=== PATIENT | female | born 1975 | race Caucasian/White ===

== ENCOUNTER 2017-11-04 07:03 | Inpatient (IN) | payer MEDICAID ==
[2017-11-04] VITALS (20 sets, daily range): BP systolic 133–176; BP diastolic 77–96; PULSE 42–56; RESP 18–24; TEMP 98.6–99.7; O2SAT 98–100
[~2017-11-04] VITALS: Ht 162.6 cm; Wt 69.5 kg
[~2017-11-04 07:03] MED LIST: ADVAI250I PO; CLIN150 PO; DIPH2%T PO; GABA800T PO; HYDR-3533 PO; IBUP600 PO; IBUP800 PO; LEVE500 PO; LEXA20TA PO; PRED-1 PO; SYMB160A INH; SYNT75TA PO; TRAZ50TA4 PO; XANA0.5T PO
[2017-11-04] MEDS ORDERED: SODIUM CHLOR 0.9% 1000 ML INJ 1,000 ML IV SCH (07:11)
[2017-11-04] MEDS ORDERED: SODIUM CHLORIDE 0.9% FLUSH 10 ML FLUSH IV FLUSH PRN (07:15)
[2017-11-04] MEDS ORDERED: LEVO100T5 PO (07:24)
[2017-11-04] MEDS ORDERED: ESCI20TA PO (07:24)
[2017-11-04] MEDS ORDERED: PRED10 PO (07:24)
[2017-11-04] MEDS ORDERED: ALPR0.5T3 PO (07:24)
[2017-11-04] MEDS ORDERED: GABA800T PO (07:24)
[2017-11-04] MEDS ORDERED: TRAZ100T10 PO (07:24)
[2017-11-04] MEDS ORDERED: HYDR-3583 PO (07:24)
[2017-11-04] MEDS ORDERED: CELE1CAP8 PO (07:24)
[2017-11-04] MEDS ORDERED: SODIUM CHLOR 0.9% 1000 ML INJ 1,000 ML IV ONE (07:30)
[2017-11-04 07:31] LABS: AUTOMATED NEUTROPHIL # 6.3 TH/MM3 (1.8-7.7); BASOPHIL % 0.4 % (0.0-2.0); EOSINOPHIL # 0.3 TH/MM3 (0-0.4); EOSINOPHIL % 3.3 % (0.0-4.0); HEMATOCRIT 45.9 % (35.0-46.0); HEMO FLAGS DIFF FINAL; LYMPH % 19.2 % (9.0-44.0); LYMPHOCYTE # 1.7 TH/MM3 (1.0-4.8); MEAN CELL VOLUME 94.2 FL (80.0-100.0); MEAN CORPUSCULAR HEMOGLOBIN 31.4 PG (27.0-34.0); MEAN CORPUSCULAR HGB CONC 33.3 % (32.0-36.0); MONO % 7.6 % (0.0-8.0); NEUT % 69.5 % (16.0-70.0); PLATELET COUNT 170 TH/MM3 (150-450); RED BLOOD COUNT 4.87 MIL/MM3 (4.00-5.30); RED CELL DISTRIBUTION WIDTH 13.6 % (11.6-17.2)
[2017-11-04 07:33] LABS: BLOOD, URINE NEG (NEG); GLUCOSE,URINE NEG (NEG); KETONE, URINE NEG (NEG); NITRITE,URINE NEG (NEG); PH, URINE 5.5 (5.0-8.5); SQUAMOUS EPITHELIAL CELL URINE <1 /hpf (0-5); URINE COLOR LIGHT-YELLOW (YELLW/STRAW)
[2017-11-04 07:34] LABS: COMMENT (UR) CATH-CULT NOT IND; CULTURE IF INDICATED CATH CULTURE NOT IND
[2017-11-04 07:56] LABS: ALT (GPT) 24 U/L (10-53); ANION GAP 6 MEQ/L (5-15); AST (GOT) 19 U/L (15-37); BICARBONATE 25.3 MEQ/L (21.0-32.0); BLOOD UREA NITROGEN 14 MG/DL (7-18); CHLORIDE 111 MEQ/L (98-107); GLOMERULAR FILTRATION RATE 73 ML/MIN (>89); POTASSIUM 4.1 MEQ/L (3.5-5.1); SODIUM (NA) 142 MEQ/L (136-145)
--- NOTE | 2017-11-04 07:56 | RADRPT ---
EXAM DATE/TIME: 11/04/2017 07:41 [facility] COMPARISON: CT BRAIN W/O CONTRAST, August 19, 2016, 19:14. INDICATIONS : Found unresponsive RADIATION DOSE: 33.98 CTDIvol (mGy) MEDICAL HISTORY : Non-responsive. SURGICAL HISTORY : Non-responsive. ENCOUNTER: Initial ACUITY: 1 day PAIN SCALE: Non-responsive LOCATION: cranial TECHNIQUE: Multiple contiguous axial images were obtained of the head. Using automated exposure control and adj ustment of the mA and/or kV according to patient size, radiation dose was kept as low as reasonably a chievable to obtain optimal diagnostic quality images. DICOM format image data is available electro nically for review and comparison. FINDINGS: CEREBRUM: The ventricles are normal for age. No evidence of midline shift, mass lesion, hemorrhage or acute in farction. No extra-axial fluid collections are seen. POSTERIOR FOSSA: The cerebellum and brainstem are intact. The 4th ventricle is midline. The cerebellopontine angle i s unremarkable. EXTRACRANIAL: The visualized portion of the orbits is intact. SKULL: The calvaria is intact. No evidence of skull fracture. CONCLUSION: 1. No acute intracranial abnormality. David Osorio MD on November 04, 2017 at 7:52 Board Certified Radiologist. This report was verified electronically.
[2017-11-04 08:00] LABS: ALCOHOL LESS THAN 3 MG/DL (0-5)
[2017-11-04 08:06] LABS: ALKALINE PHOSPHATASE 104 U/L (45-117); CREATINE KINASE 220 U/L (26-192); TOTAL BILIRUBIN ADULT 0.2 MG/DL (0.2-1.0)
--- NOTE | 2017-11-04 08:12 | RADRPT ---
EXAM DATE/TIME: 11/04/2017 07:54 [facility] COMPARISON: No previous studies available for comparison. INDICATIONS : Evaluate ET tube placement. MEDICAL HISTORY : Unobtainable SURGICAL HISTORY : Unobtainable ENCOUNTER: Initial ACUITY: 1 day PAIN SCORE: Non-responsive. LOCATION: Bilateral chest FINDINGS: There is an ETT approximately 1.2 cm above the isabela. Retrocardiac opacity. Cardiomediastinal contou rs are within normal limits. Bony thorax is intact. CONCLUSION: 1. ETT 1.2 cm above the isabela. 2. Retrocardiac opacity consistent with airspace disease in the left lung base. David Osorio MD on November 04, 2017 at 8:08 Board Certified Radiologist. This report was verified electronically.
[2017-11-04 08:19] LABS: CKMB 4.3 NG/ML (0.5-3.6)
[2017-11-04 08:27] LABS: ACETAMINOPHEN LESS THAN 2.0 MCG/ML (10.0-30.0)
--- NOTE | 2017-11-04 08:27 | PD ---
HPI Chief Complaint: Altered Mental Status Time Seen by Provider: 07:11 Travel History International Travel<30 days: No Contact w/Intl Traveler<30days: No Traveled to known affect area: No History of Present Illness HPI 42-year-old female came to the emergency room with history of being found unresponsive at home by her son. He found both his mother and father unresponsive and called 911. When paramedics arrived the patient was a GCS of 3. She was given Narcan at the scene total of 1.2 mg with no change of her mental status. Decision was made to intubate her once she started doing gagging motions. Patient was in no condition obviously to give any meaningful history. She was brought in intubated. There was no family member is assisting to give any further history. Blood sugar was 98 as per the paramedics and vital signs remained relatively stable. Patient had received Ativan and Etomidate for the intubation. As per the paramedics patient was last seen normal by the son was at 10 PM last night. Her was found unresponsive in the bathroom twitching. They found a pipe in the surrounding. Upon arrival vital signs were stable. [facility] Past Medical History Narrative Medical List of her past medical, surgical, social and family history is reviewed from the nursing note. Arthritis: Yes Autoimmune Disease: Yes (LUPUS) Anxiety: Yes Depression: Yes Cancer: No Cardiovascular Problems: No Chemotherapy: No Diminished Hearing: No Endocrine: No Gastrointestinal Disorders: Yes Gout: Yes Genitourinary: No Headaches: Yes Immune Disorder: No Implanted Vascular Access Dvce: No Musculoskeletal: Yes Neurologic: Yes (seizure disorder) Psychiatric: Yes Reproductive: No Respiratory: No Immunizations Current: Yes Migraines: Yes Radiation Therapy: No Seizures: Yes Thyroid Disease: Yes PNEUMOCCOCAL Vaccine (Year): 2010 ?: Not : 3 Para: 2 Miscarriage: 1 Ovarian Cysts: Yes Tubal Ligation: Yes Past Surgical History Gynecologic Surgery: Yes (LT OOPHORECTOMY) Other Surgery: Yes Social History Alcohol Use: No Tobacco Use: Yes (1 PPD) Substance Use: No Allergies-Medications (Allergen,Severity, Reaction): Coded Allergies: almond (Verified Allergy, Severe, Anaphylaxis, 11/08/17) lorazepam (Verified Allergy, Unknown, 11/08/17) Comments List of her allergies reviewed from the nursing note. Reported Meds & Prescriptions Reported Meds & Active Scripts Active Reported Hydrocodone-Acetaminophen 10-325 mg Tab 1 Tab PO Q4H PRN Celecoxib 200 Mg Cap 200 Mg PO BID Gabapentin 800 Mg Tab 800 Mg PO QID Trazodone (Trazodone HCl) 100 Mg Tablet 100 Mg PO HS Levothyroxine (Levothyroxine Sodium) 100 Mcg Tab 100 Mcg PO DAILY Escitalopram (Escitalopram Oxalate) 20 Mg Tab 20 Mg PO DAILY Alprazolam 0.5 Mg Tab 0.5 Mg PO Q8H PRN Narrative Medication List of her home medications reviewed from the nursing note. Review of Systems ROS Limitations: Intubated, Unresponsive Except as stated in HPI: all other systems reviewed are Neg Physical Exam Narrative GENERAL: Unresponsive, intubated, disheveled SKIN: Focused skin assessment warm/dry. HEAD: Atraumatic. Normocephalic. EYES: Pupils equal and round. No scleral icterus. No injection or drainage. ENT: No nasal bleeding or discharge. Mucous membranes pink and moist. NECK: Trachea midline. No JVD. CARDIOVASCULAR: Regular rate and rhythm. No murmur appreciated. RESPIRATORY: No accessory muscle use. Clear to auscultation. Breath sounds equal bilaterally. GASTROINTESTINAL: Abdomen soft, non-tender, nondistended. Hepatic and splenic margins not palpable. MUSCULOSKELETAL: No obvious deformities. No clubbing. No cyanosis. No edema. NEUROLOGICAL: GCS of 3 PSYCHIATRIC: Unable to assess Data Data Last Documented VS Vital Signs Date Time Temp Pulse Resp B/P (MAP) Pulse Ox O2 Delivery O2 Flow Rate FiO2 11/04/17 07:35 100 100 11/04/17 07:31 48 18 133/96 (108) Orders Orders Electrocardiogram (11/04/17 07:11) Ammonia (11/04/17 07:11) Complete Blood Count With Diff (11/04/17 07:11) Comprehensive Metabolic Panel (11/04/17 07:11) Creatine Kinase (Cpk) (11/04/17 07:11) Prothrombin Time / Inr (Pt) (11/04/17 07:11) Troponin I (11/04/17 07:11) Thyroid Stimulating Hormone (11/04/17 07:11) Urinalysis - C+S If Indicated (11/04/17 07:11) Lactic Acid Sepsis Protocol (11/04/17 07:11) Blood Culture (11/04/17 07:11) Chest, Single Ap (11/04/17 07:11) Ct Brain W/O Iv Contrast(Rout) (11/04/17 07:11) Blood Glucose (11/04/17 07:11) Ecg Monitoring (11/04/17 07:11) Iv Access Insert/Monitor (11/04/17 07:11) Oximetry (11/04/17 07:11) Sodium Chloride 0.9% Flush (Ns Flush) (11/04/17 07:15) Sodium Chlor 0.9% 1000 Ml Inj (Ns 1000 M (11/04/17 07:11) Drug Screen, Random Urine (11/04/17 07:11) Alcohol (Ethanol) (11/04/17 07:11) Tylenol (Acetaminophen) (11/04/17 07:11) Salicylates (Aspirin) (11/04/17 07:11) Marcus-Gastric Tube Insert/Mon (11/04/17 07:20) Urinary Catheter Insert/Apply (11/04/17 07:20) Sodium Chlor 0.9% 1000 Ml Inj (Ns 1000 M (11/04/17 07:30) Restraints Non-Violent DORIS.Q3H (11/04/17 07:25) CKMB (11/04/17 07:15) CKMB% (11/04/17 07:15) Cbc No Diff, Includes Plts (11/05/17 05:00) Cbc No Diff, Includes Plts (11/06/17 05:00) Cbc No Diff, Includes Plts (11/07/17 05:00) Basic Metabolic Panel (Bmp) (11/05/17 05:00) Basic Metabolic Panel (Bmp) (11/06/17 05:00) Basic Metabolic Panel (Bmp) (11/07/17 05:00) Restraints Non-Violent DORIS.Q3H (11/04/17 08:23) Labetalol Inj (Trandate Inj) (11/04/17 08:30) Hydralazine Inj (Apresoline Inj) (11/04/17 08:30) Inpatient Certification (11/04/17 08:23) Chlorhexidine 0.12% Liq (Peridex 0.12% L (11/04/17 20:00) Resp Ventilation- Volume (11/04/17 ) Ventilator Weaning Readiness DORIS.DAILY@0800 (11/04/17 08:23) Elevate Head Of Bed (11/04/17 08:23) Magnesium Oxide (Mag-Ox) (11/04/17 08:30) Magnesium Sulfate Inj (Magnesium Sulfate (11/04/17 08:30) Magnesium Sulfate Inj (Magnesium Sulfate (11/04/17 08:30) Potassium Chlor 20 Meq Premix (Kcl 20 Me (11/04/17 08:30) Potassium Chlor 20 Meq Premix (Kcl 20 Me (11/04/17 08:30) Potassium Chlor 40 Meq Premix (Kcl 40 Me (11/04/17 08:30) Potassium Chlor 40 Meq Premix (Kcl 40 Me (11/04/17 08:30) Potassium Phosphate (K-Phos) (11/04/17 08:30) Potassium Phosphate (K-Phos) (11/04/17 08:30) Potassium Phosphate Inj (Potassium Phosp (11/04/17 08:30) Sodium Phosphate Inj (Sodium Phosphate I (11/04/17 08:30) Bedside Glucose DORIS.Q6H (11/04/17 08:23) Blood Glucose Goal (Criteria) (11/04/17 08:23) Hypoglycemia 51 - 69 Mg/Dl (11/04/17 08:23) Hypoglycemia 50 Mg/Dl Or < (11/04/17 08:23) Notify Dr: Other (11/04/17 08:23) Dextrose 50% In [place] (Vial) Inj (D50w (Vi (11/04/17 08:30) Insulin Human Reg Supp Scale (Novolin R (11/04/17 12:00) Thiamine Inj (Thiamine Inj) (11/05/17 02:00) Thiamine (Vit B1) (Vitamin B1) (11/08/17 09:00) Multivitamin Inj (Mvi-12 Inj)... (11/04/17 10:00) Diet Tube Feed Only (11/04/17 Breakfast) Dietary (Dietitian) Consult (11/04/17 08:23) Tube Feeding 08,20 (11/04/17 08:23) Neuro Checks DORIS.Q1H (11/04/17 08:23) Albuterol-Ipratropium Neb (Duoneb Neb) (11/04/17 10:00) Albuterol-Ipratropium Neb (Duoneb Neb) (11/04/17 08:30) Urinary Catheter Management DORIS.Q1H (11/04/17 08:23) Neurological Rass Scale Q30MX2,Q2HX4,Q4H (11/04/17 08:23) Neurological Rass Scale DORIS.Q2H (11/04/17 08:23) RASS (11/04/17:23) ^ Infusion (11/04/17:) Tube Feeding 08,20 (11/04/17 08:23) Code Status (11/04/17:23) Vital Signs (Adult) DORIS.Q1H (11/04/17 08:23) Activity Bed Rest (11/04/17:23) Elevate Head Of Bed (11/04/17:23) Neuro Checks . ORDERED (11/04/17:23) Intake + Output Q1H (11/04/17 08:23) ^ Orogastric Tube (11/04/17:23) Acetaminophen (Tylenol) (11/04/17 08:30) Famotidine Inj (Pepcid Inj) (11/04/17 10:00) Ondansetron Inj (Zofran Inj) (11/04/17 08:30) Health Information Management Director / Telemetry DORIS.Q8H (11/04/17 08:23) Enoxaparin Inj (Lovenox Inj) (11/04/17 10:00) ^ Initiate Protocol (11/04/17 08:23) Instruction (11/04/17 08:23) [facility] Nursing Information (11/04/17 08:30) Chlorhexidine 2% Cloth (Chlorhexidine 2% (11/05/17 04:00) Chlorhexidine 2% Cloth (Chlorhexidine 2% (11/04/17 08:30) Mrsa Pcr Surveillance (11/04/17 08:23) Docusate Sodium-Senna (Lindsey-Colace) (11/04/17 09:00) Magnesium Hydroxide Liq (Milk Of Magnesi (11/04/17 08:30) Bisacodyl Supp (Dulcolax Supp) (11/04/17 08:30) Lactulose Liq (Lactulose Liq) (11/04/17 08:30) Lactated Ringer's 1000 Ml Inj (Lr 1000 M (11/04/17 10:00) Admit Order (Ed Use Only) (11/04/17 08:27) Multivitamin (Theragran) (11/05/17 09:00) Labs Laboratory Tests Test 11/04/17 07:15 White Blood Count 9.0 TH/MM3 Red Blood Count 4.87 MIL/MM3 Hemoglobin 15.3 GM/DL Hematocrit 45.9 % Mean Corpuscular Volume 94.2 FL Mean Corpuscular Hemoglobin 31.4 PG Mean Corpuscular Hemoglobin Concent 33.3 % Red Cell Distribution Width 13.6 % Platelet Count 170 TH/MM3 Mean Platelet Volume 10.9 FL Neutrophils (%) (Auto) 69.5 % Lymphocytes (%) (Auto) 19.2 % Monocytes (%) (Auto) 7.6 % Eosinophils (%) (Auto) 3.3 % Basophils (%) (Auto) 0.4 % Neutrophils # (Auto) 6.3 TH/MM3 Lymphocytes # (Auto) 1.7 TH/MM3 Monocytes # (Auto) 0.7 TH/MM3 Eosinophils # (Auto) 0.3 TH/MM3 Basophils # (Auto) 0.0 TH/MM3 CBC Comment DIFF FINAL Differential Comment Prothrombin Time 10.0 SEC Prothromb Time International Ratio 1.0 RATIO Urine Color LIGHT-YELLOW Urine Turbidity CLEAR Urine pH 5.5 Urine Specific [place] 1.006 Urine Protein NEG mg/dL Urine Glucose (UA) NEG mg/dL Urine Ketones NEG mg/dL Urine Occult Blood NEG Urine Nitrite NEG Urine Bilirubin NEG Urine Urobilinogen LESS THAN 2.0 MG/DL Urine Leukocyte Esterase NEG Urine RBC 3 /hpf Urine WBC 1 /hpf Urine Squamous Epithelial Cells <1 /hpf Microscopic Urinalysis Comment CATH-CULT NOT IND Blood Urea Nitrogen 14 MG/DL Creatinine 0.85 MG/DL Random Glucose 105 MG/DL Total Protein 7.4 GM/DL Albumin 3.6 GM/DL Calcium Level 8.2 MG/DL Alkaline Phosphatase 104 U/L Aspartate Amino Transf (AST/SGOT) 19 U/L Alanine Aminotransferase (ALT/SGPT) 24 U/L Total Bilirubin 0.2 MG/DL Sodium Level 142 MEQ/L Potassium Level 4.1 MEQ/L Chloride Level 111 MEQ/L Carbon Dioxide Level 25.3 MEQ/L Anion Gap 6 MEQ/L Estimat Glomerular Filtration Rate 73 ML/MIN Lactic Acid Level 1.0 mmol/L Ammonia 32 MCMOL/L Total Creatine Kinase 220 U/L Creatine Kinase MB 4.3 NG/ML Creatine Kinase MB % 2.0 % Troponin I 0.03 NG/ML Thyroxine (T4) 7.8 MCG/DL Thyroid Stimulating Hormone 3rd Gen 0.246 uIU/ML Salicylates Level 3.2 MG/DL Urine Opiates Screen NEG Acetaminophen Level LESS THAN 2.0 MCG/ML Urine Barbiturates Screen NEG Urine Amphetamines Screen NEG Urine Benzodiazepines Screen NEG Urine Cocaine Screen NEG Urine Cannabinoids Screen POS Ethyl Alcohol Level LESS THAN 3 MG/DL MDM Medical Decision Making Medical Screen Exam Complete: Yes Emergency Medical Condition: Yes Medical Record Reviewed: Yes Interpretation(s) Twelve-lead EKG was reviewed by me. Normal sinus rhythm, normal axis, peaked T waves, bradycardia. Heart rate of 51 bpm. Differential Diagnosis Benzo overdose, intracranial bleed, substance overdose, metabolic encephalopathy Narrative Course 8:[address] scan of her head was negative for any bleed. Rest of her blood work has come back to be unremarkable. Patient has been admitted to the intensive care unit under Dr. Bryant's service. Her etiology of her depressed mental status is unknown at this point. Could be substance-induced which hasn't shown up on the drug screen. Her is in the next pod over and intubated as well. Critical Care Narrative Aggregate critical care time was 45 minutes. Time to perform other separately billable procedures was not included in the critical care time. My time did not include minutes spent treating any other patients simultaneously or on activities that did not directly contribute to the patient's treatment. The services I provided to this patient were to treat and/or prevent clinically significant deterioration that could result in: Ventilator management, respiratory failure, altered mental status I provided critical care services requiring my management, as noted below: Chart data review, documentation time, medication orders and management, vital sign assessments/reviewing monitor data, ordering and reviewing lab tests, ordering and interpreting/reviewing x-rays and diagnostic studies, care of the patient and discussion of the patient with the admitting physicians. Procedures EKG Prior to Arrival: Yes Physician Communication Physician Communication Dr. Bryant Diagnosis Primary Impression: Unresponsive Additional Impressions: Respiratory failure Qualified Codes: J96.00 - Acute respiratory failure, unspecified whether with hypoxia or hypercapnia Substance abuse Admitting Information Admitting Physician Requests: Admit Scripts Benzonatate (Tessalon Perles) 100 Mg Cap 100 MG PO TID Y for COUGH, #20 CAP Prov: Heath Gallardo MD 11/07/17 Cefuroxime (Cefuroxime) 500 Mg Tab 500 MG PO Q12HR, #10 TAB Prov: Heath Gallardo MD 11/07/17 Renetta Kemp MD Nov 04, 2017 08:26
[2017-11-04] MEDS ORDERED: ACETAMINOPHEN 325 MG TAB PO PRN (08:30)
[2017-11-04] MEDS ORDERED: DEXTROSE 50% IN WATER 50 ML VIAL(D50) IV PUSH PRN (08:30)
[2017-11-04] MEDS ORDERED: MAGNESIUM HYDROXIDE SUSP 30 ML CUP PO PRN (08:30)
[2017-11-04] MEDS ORDERED: MAGNESIUM SULFATE INJ 4 GM in SODIUM CHLORIDE 0.9% INJ 92 ML IV PRN (08:30)
[2017-11-04] MEDS ORDERED: POTASSIUM PHOSPHATE MONOBASIC 500 MG TAB PO/TUBE PRN (08:30)
[2017-11-04] MEDS ORDERED: POTASSIUM CHLOR 20 MEQ PREMIX 100 ML IV PRN ×2 (08:30)
[2017-11-04] MEDS ORDERED: POTASSIUM CHLOR 40 MEQ PREMIX 100 ML IV PRN ×2 (08:30)
[2017-11-04] MEDS ORDERED: ONDANSETRON HCL 4 MG/2 ML VIAL IV PUSH PRN (08:30)
[2017-11-04] MEDS ORDERED: RESP: ALBUTEROL 2.5 MG/IPRATROPIUM 0.5 MG NEB (PRN) INH (08:30)
[2017-11-04] MEDS ORDERED: PROPOFOL 1000 MG/100 ML INJ 100 ML IV PRN ×2 (08:30→11:00)
[2017-11-04] MEDS ORDERED: MAGNESIUM OXIDE 400 MG TAB PO PRN (08:30)
[2017-11-04] MEDS ORDERED: LACTULOSE SYRUP 20 GM/30 ML CUP PO PRN (08:30)
[2017-11-04] MEDS ORDERED: fentaNYL DRIP 250 ML IV PRN ×2 (08:30→11:00)
[2017-11-04] MEDS ORDERED: MISCELLANEOUS NURSING INFORMATION XX SCH (08:30)
[2017-11-04] MEDS ORDERED: POTASSIUM PHOSPHATE MONOBASIC 500 MG TAB PO PRN (08:30)
[2017-11-04] MEDS ORDERED: SODIUM PHOSPHATE INJ 30 MMOL in SODIUM CHLOR 0.9% 250 ML INJ 240 ML IV PRN (08:30)
[2017-11-04] MEDS ORDERED: MAGNESIUM SULFATE INJ 2 GM in SODIUM CHLORIDE 0.9% INJ 96 ML IV PRN (08:30)
[2017-11-04] MEDS ORDERED: BISACODYL 10 MG SUPP RECTAL PRN (08:30)
[2017-11-04] MEDS ORDERED: POTASSIUM PHOSPHATE INJ 30 MMOL in SODIUM CHLOR 0.9% 250 ML INJ 250 ML IV PRN (08:30)
[2017-11-04] MEDS ORDERED: CHLORHEXIDINE GLUCONATE 2 % 1 PACK (2 CLOTHS) TOP PRN (08:30)
[2017-11-04 08:56] LABS: BLOOD GAS VENOUS BASE EXCESS -0.9 mmol/L (-2-2); BLOOD GAS VENOUS HCO3 25 mmol/L (22-26); BLOOD GAS VENOUS O2 CONTENT 9.7 Vol % (9.0-17.0); BLOOD GAS VENOUS O2 HGB SAT 49 % (70-76); BLOOD GAS VENOUS PCO2 51 mmHg (44-48); BLOOD GAS VENOUS PO2 31 mmHg (35-40); CRITICAL VALUE YES; TEMP CORR TO 98.6
[2017-11-04 08:57] LABS: DRAW SITE LT RADIAL; FIO2 100 %; OXYGEN DEVICE VENTILATOR; STAT YES
[2017-11-04 08:58] LABS: VENT SETTINGS AC 18/500/PEEP5
[2017-11-04] MEDS: DOCUSATE SODIUM 50 MG/SENNA 8.6 MG TAB PO SCH ×2 (09:00→21:00)
--- NOTE | 2017-11-04 09:06 | HHI.HP ---
[facility] Service Critical Care Medicine Primary Care Physician Rob Condon, DO Admission Diagnosis unresponsive, respiratory failure, substance abuse Diagnosis: Chief Complaint: altered mental status Travel History International Travel<30 Days: No Contact w/Intl Traveler <30 Da: No Traveled to Known Affected Are: No History of Present Illness Is a 42-year-old female who presented to the emergency department after being found unresponsive by her teenage son at home. He found both parents unresponsive and called 911. Patient had a GCS of 3 initially and was unresponsive to Narcan. She was intubated in the field. No additional information is available. Last seen normal time was 10 PM last night. They found a height in the surrounding area. Apparently there were a large number of Xanax missing from the bottle. She is admitted for presumed benzodiazepine overdose. Review of Systems ROS Limitations: Clinical Condition, Intubated, Altered Mental Status, Unresponsive Past Family Social History Allergies: Coded Allergies: almond (Unverified Allergy, Severe, Anaphylaxis, 11/04/17) Past Medical History Arthritis lupus anxiety depression gout headache seizure disorder ovarian cysts Past Surgical History left oophorectomy Reported Medications Hydrocodone-Acetaminophen 10-325 mg Tab 1 Tab PO Q4H PRN Celecoxib 200 Mg Cap 200 Mg PO BID Prednisone 10 Mg Tab 10 Mg PO DAILY Gabapentin 800 Mg Tab 800 Mg PO QID Trazodone (Trazodone HCl) 100 Mg Tablet 100 Mg PO HS Levothyroxine (Levothyroxine Sodium) 100 Mcg Tab 100 Mcg PO DAILY Escitalopram (Escitalopram Oxalate) 20 Mg Tab 20 Mg PO DAILY Alprazolam 0.5 Mg Tab 0.5 Mg PO Q8H PRN Active Ordered Medications See MAR Family History unobtainable secondary to the clinical condition of the patient Social History 1 ppd smoker. Physical Exam Vital Signs Vital Signs Date Time Temp Pulse Resp B/P (MAP) Pulse Ox O2 Delivery O2 Flow Rate FiO2 11/04/17 07:31 48 18 133/96 (108) 11/04/17 07:24 100 11/04/17 07:12 100 11/04/17 07:00 100 100 Physical Exam GENERAL: Middle-aged appearing female, lying in bed, intubated, obtunded HEENT: Normocephalic. Atraumatic. Pupils equal, round, reactive, conjugate. Mucous membranes are dry NECK: Trachea is midline. There is no JVD. CHEST: PRVC, 100% FiO2, PEEP of 5, tidal volume 500, respiratory rate 18. Equal chest rise. CARDIOVASCULAR: Bradycardic rate of 43, regular rhythm. Sinus by telemetry. ABDOMEN: Soft, nontender, nondistended. No guarding. MUSCULOSKELETAL: Pulses 2+. No peripheral edema. NEUROLOGICAL: RASS -5. GCS 3. Negative cough. Negative gag. Pupils 2 mm, equal, round, conjugate. Laboratory Laboratory Tests Test 11/04/17 07:15 White Blood Count 9.0 Red Blood Count 4.87 Hemoglobin 15.3 Hematocrit 45.9 Mean Corpuscular Volume 94.2 Mean Corpuscular Hemoglobin 31.4 Mean Corpuscular Hemoglobin Concent 33.3 Red Cell Distribution Width 13.6 Platelet Count 170 Mean Platelet Volume 10.9 Neutrophils (%) (Auto) 69.5 Lymphocytes (%) (Auto) 19.2 Monocytes (%) (Auto) 7.6 Eosinophils (%) (Auto) 3.3 Basophils (%) (Auto) 0.4 Neutrophils # (Auto) 6.3 Lymphocytes # (Auto) 1.7 Monocytes # (Auto) 0.7 Eosinophils # (Auto) 0.3 Basophils # (Auto) 0.0 CBC Comment DIFF FINAL Differential Comment Prothrombin Time 10.0 Prothromb Time International Ratio 1.0 Urine Color LIGHT-YELLOW Urine Turbidity CLEAR Urine pH 5.5 Urine Specific [place] 1.006 Urine Protein NEG Urine Glucose (UA) NEG Urine Ketones NEG Urine Occult Blood NEG Urine Nitrite NEG Urine Bilirubin NEG Urine Urobilinogen LESS THAN 2.0 Urine Leukocyte Esterase NEG Urine RBC 3 Urine WBC 1 Urine Squamous Epithelial Cells <1 Microscopic Urinalysis Comment CATH-CULT NOT IND Blood Urea Nitrogen 14 Creatinine 0.85 Random Glucose 105 Total Protein 7.4 Albumin 3.6 Calcium Level 8.2 Alkaline Phosphatase 104 Aspartate Amino Transf (AST/SGOT) 19 Alanine Aminotransferase (ALT/SGPT) 24 Total Bilirubin 0.2 Sodium Level 142 Potassium Level 4.1 Chloride Level 111 Carbon Dioxide Level 25.3 Anion Gap 6 Estimat Glomerular Filtration Rate 73 Lactic Acid Level 1.0 Ammonia 32 Total Creatine Kinase 220 Creatine Kinase MB 4.3 Creatine Kinase MB % 2.0 Troponin I 0.03 Thyroid Stimulating Hormone 3rd Gen 0.246 Salicylates Level 3.2 Urine Opiates Screen NEG Acetaminophen Level LESS THAN 2.0 Urine Barbiturates Screen NEG Urine Amphetamines Screen NEG Urine Benzodiazepines Screen NEG Urine Cocaine Screen NEG Urine Cannabinoids Screen POS Ethyl Alcohol Level LESS THAN 3 Date/Time Source Procedure Growth Status 11/04/17 07:15 Blood Peripheral Aerobic Blood Culture Pending Received 11/04/17 07:15 Blood Peripheral Anaerobic Blood Culture Pending Received Result Diagram: 11/04/1715 11/04/1715 Imaging Last Impressions Head CT 11/04/17710 Signed Impressions: Service Date/Time: Saturday, November 04, 2017 07:41 - CONCLUSION: 1. No acute intracranial abnormality. David Osorio MD Chest X-Ray 11/04/17710 Signed Impressions: Service Date/Time: Saturday, November 04, 2017 07:54 - CONCLUSION: 1. ETT 1.2 cm above the isabela. 2. Retrocardiac opacity consistent with airspace disease in the left lung base. MD [place] VTE Risk Assessment Caprini VTE Risk Assessment: Mod/High Risk (score >= 2) Caprini Risk Assessment Model Point Value = 1 Point Value = 2 Point Value = 3 Point Value = 5 Age 41-60 Minor surgery BMI > 25 kg/m2 Swollen legs Varicose veins or History of unexplained or recurrent spontaneous Oral contraceptives or hormone replacement Sepsis (< 1 month) Serious lung disease, including pneumonia (< 1 month) Abnormal pulmonary function Acute myocardial infarction Congestive heart failure (< 1 month) History of inflammatory bowel disease Medical patient at bed rest Age 61-74 Arthroscopic surgery Major open surgery (> 45 min) Laparoscopic surgery (> 45 min) Malignancy Confined to bed (> 72 hours) Immobilizing plaster cast Central venous access Age >= 75 History of VTE Family history of VTE Factor V Leiden Prothrombin [id number] Lupus anticoagulant Anticardiolipin antibodies Elevated serum homocysteine Heparin-induced thrombocytopenia Other congenital or acquired thrombophilia Stroke (< 1 month) Elective arthroplasty Hip, pelvis, or leg fracture Acute spinal cord injury (< 1 month) Prophylaxis Regimen Total Risk Factor Score Risk Level Prophylaxis Regimen 0-1 Low Early ambulation 2 Moderate Order ONE of the following: *Sequential Compression Device (SCD) *Heparin 5000 units SQ BID 3-4 Higher Order ONE of the following medications: *Heparin 5000 units SQ TID *Enoxaparin/Lovenox 40 mg SQ daily (WT < 150 kg, CrCl > 30 mL/min) *Enoxaparin/Lovenox 30 mg SQ daily (WT < 150 kg, CrCl > 10-29 mL/min) *Enoxaparin/Lovenox 30 mg SQ BID (WT < 150 kg, CrCl > 30 mL/min) AND/OR *Sequential Compression Device (SCD) 5 or more Highest Order ONE of the following medications: *Heparin 5000 units SQ TID (Preferred with Epidurals) *Enoxaparin/Lovenox 40 mg SQ daily (WT < 150 kg, CrCl > 30 mL/min) *Enoxaparin/Lovenox 30 mg SQ daily (WT < 150 kg, CrCl > 10-29 mL/min) *Enoxaparin/Lovenox 30 mg SQ BID (WT < 150 kg, CrCl > 30 mL/min) AND *Sequential Compression Device (SCD) Assessment and Plan Assessment and Plan Assessment: 42-year-old female found unresponsive at home by her son with a large amount of missing Xanax from pill bottle. Presumed benzodiazepine overdose. Continue frequent neuro checks and remain intubated until mental status improves. Remains critically ill with toxic encephalopathy, overdose, acute hypoxic and hypercarbic respiratory failure. Plan by systems: Neurologic: Toxic encephalopathy Benzodiazepine overdose Frequent neuro checks Avoid long-acting sedating drugs Fentanyl and propofol for goal RASS -2 Respiratory: Hypoxic and hypercarbic respiratory failure Vent bundle Head of bed at 30 Nebs wean FiO2 for goal SPO2 greater than 90% No weaning of mechanical ventilation until mental status improves Cardiovascular: Sinus bradycardia Asymptomatic Monitor on telemetry Renal: Acute kidney injury Rhabdomyolysis Likely secondary to presumed overdose LR at 150 cc an hour Serial CKs -- Strict I/Os FEN/GI: Intravascular volume depletion Maintenance fluids as above Jevity tube feedings, goal of 60, nutrition consult Daily BMP Heme/ID: No infectious etiology suspected this time Daily CBC Endocrine: Hyperglycemia of critical illness -- SSI, every 6, medium scale Prophylaxis: GI Prophylaxis Pepcid IV DVT Prophylaxis -- SCDs Lovenox Lines: IVs Wiggins Dispo: ICU. Critically ill This patient remains critically ill with one or more organ systems which are or may become a threat to life. I have spent in excess of 41 minutes discontinuously in the care and management of this patient. This time is exclusive of procedures, and includes, but is not limited to, evaluation of the patient, review of the medical record, discussions with family, consultants, nursing staff, or respiratory therapy, and documentation in the medical record. Code Status Full Code Stewart Bryant MD Nov 04, 2017 09:05
[2017-11-04] MEDS ORDERED: MULTIVITAMIN INJ 10 ML, THIAMINE INJ 100 MG, FOLIC ACID INJ 1 MG in SODIUM CHLOR 0.45% ... IV ONE (10:00)
[2017-11-04] MEDS: ENOXAPARIN SODIUM 40 MG/0.4 ML SYRINGE SQ SCH (10:00)
[2017-11-04] MEDS: FAMOTIDINE 20 MG/2 ML VIAL IV PUSH SCH ×2 (10:00→21:00)
[2017-11-04] MEDS: RESP: ALBUTEROL 2.5 MG/IPRATROPIUM 0.5 MG NEB (SCH) INH ×3 (10:24→19:35)
[2017-11-04] MEDS: INSULIN NovoLIN REGULAR SUPPLEMENTAL SCALE SQ SCH ×2 (12:00→18:00)
[2017-11-04] MEDS: LACTATED RINGER'S 1000 ML INJ 1,000 ML IV SCH ×2 (16:04→18:00)
[2017-11-04] MEDS: hydrALAZINE HCL 20 MG/ML VIAL IV PUSH PRN (16:15)
--- NOTE | 2017-11-04 19:18 | EKG ---
Date Performed: 11/04/2017 Time Performed: 07:09:50 PTAGE: 42 years EKG: SINUS BRADYCARDIA TALL T-WAVES, CONSIDER NORMAL VARIANT Can not exclude hyperkalemia. When compared to previous tracing, peaked T waves are new. BORDERLINE ECG PREVIOUS TRACING : 05/09/2016 01.33.26 DOCTOR: Rubén Gay Interpretating Date/Time 11/04/2017 19:18:07
[2017-11-04] MEDS: CHLORHEXIDINE 0.12% (ORAL KIT) 15 ML CUP MT SCH (20:00)
[2017-11-05] VITALS (17 sets, daily range): BP systolic 147–164; BP diastolic 72–89; PULSE 49–122; RESP 24–33; TEMP 98–99.3; O2SAT 98–100
[2017-11-05] MEDS: hydrALAZINE HCL 20 MG/ML VIAL IV PUSH PRN (00:37)
[2017-11-05] MEDS: LACTATED RINGER'S 1000 ML INJ 1,000 ML IV SCH ×2 (02:18→10:52)
[2017-11-05] MEDS: THIAMINE INJ 100 MG in SODIUM CHLORIDE 0.9% INJ 100 ML IV SCH (02:18)
[2017-11-05] MEDS: RESP: ALBUTEROL 2.5 MG/IPRATROPIUM 0.5 MG NEB (SCH) INH ×4 (03:13→19:37)
[2017-11-05] MEDS: CHLORHEXIDINE GLUCONATE 2 % 1 PACK (2 CLOTHS) TOP SCH (04:00)
[2017-11-05] MEDS: INSULIN NovoLIN REGULAR SUPPLEMENTAL SCALE SQ SCH ×4 (06:00→18:00)
[2017-11-05 07:18] LABS: BICARBONATE 24.2 MEQ/L (21.0-32.0); POTASSIUM 3.4 MEQ/L (3.5-5.1)
[2017-11-05] MEDS: CHLORHEXIDINE 0.12% (ORAL KIT) 15 ML CUP MT SCH ×2 (08:00→20:00)
[2017-11-05] MEDS: MULTIVITAMIN TAB PO SCH (08:12)
[2017-11-05] MEDS: DOCUSATE SODIUM 50 MG/SENNA 8.6 MG TAB PO SCH ×2 (08:12→20:14)
[2017-11-05] MEDS: FAMOTIDINE 20 MG/2 ML VIAL IV PUSH SCH ×2 (08:12→20:10)
[2017-11-05 10:34] LABS: HEMATOCRIT 40.9 % (35.0-46.0); MEAN CELL VOLUME 93.9 FL (80.0-100.0); MEAN CORPUSCULAR HEMOGLOBIN 31.3 PG (27.0-34.0); MEAN CORPUSCULAR HGB CONC 33.3 % (32.0-36.0); PLATELET COUNT 145 TH/MM3 (150-450); RED BLOOD COUNT 4.35 MIL/MM3 (4.00-5.30); RED CELL DISTRIBUTION WIDTH 14.1 % (11.6-17.2); REVIEW FLAG FINAL; WHITE BLOOD COUNT 15.9 TH/MM3 (4.0-11.0)
[2017-11-05] MEDS: ENOXAPARIN SODIUM 40 MG/0.4 ML SYRINGE SQ SCH (10:52)
--- NOTE | 2017-11-05 12:18 | HHI.CCPN ---
Subjective Remarks/Hospital Course Is a 42-year-old female who presented to the emergency department after being found unresponsive by her teenage son at home. He found both parents unresponsive and called 911. Patient had a GCS of 3 initially and was unresponsive to Narcan. She was intubated in the field. No additional information is available. Last seen normal time was 10 PM last night. They found a height in the surrounding area. Apparently there were a large number of Xanax missing from the bottle. She is admitted for presumed benzodiazepine overdose. 11/05: Moving all extremities tolerating CPAP. Intermittently following commands per RN. Will proceed with extubation after weaning parameters Objective Vital Signs Date Time Temp Pulse Resp B/P (MAP) Pulse Ox O2 Delivery O2 Flow Rate FiO2 11/05/17 11:50 100 40 11/05/17 10:00 50 11/05/17 08:00 98.7 24 149/77 (101) 11/05/17 07:00 Mechanical Ventilator Intake and Output 11/05/17 11/05/17 11/06/17 08:00 16:00 00:00 Intake Total 50 ml Output Total 900.0 ml Balance -850.0 ml Result Diagram: 11/05/17 1006 11/05/17 0618 Imaging Last Impressions Head CT 11/04/17710 Signed Impressions: Service Date/Time: Saturday, November 04, 2017 07:41 - CONCLUSION: 1. No acute intracranial abnormality. David Osorio MD Chest X-Ray 11/04/17710 Signed Impressions: Service Date/Time: Saturday, November 04, 2017 07:54 - CONCLUSION: 1. ETT 1.2 cm above the isabela. 2. Retrocardiac opacity consistent with airspace disease in the left lung base. David Osorio MD Objective Remarks GENERAL: Middle-aged appearing female, lying in bed, intubated, awake HEENT: Normocephalic. Atraumatic. Pupils equal, round, reactive, conjugate. Mucous membranes are dry NECK: Trachea is midline. There is no JVD. CHEST: Equal chest rise on CPAP, Clear to auscultation CARDIOVASCULAR: Sinus by telemetry. no murmurs ABDOMEN: Soft, nontender, nondistended. No guarding. MUSCULOSKELETAL: Pulses 2+. No peripheral edema. NEUROLOGICAL: Pupils 2 mm, equal, round, conjugate. Alert awake intermittently follows commands moves all extremities A/P Assessment and Plan Assessment: 42-year-old female found unresponsive at home by her son with a large amount of missing Xanax from pill bottle. Presumed benzodiazepine overdose. Continue frequent neuro checks and remain intubated until mental status improves. Remains critically ill with toxic encephalopathy, overdose, acute hypoxic and hypercarbic respiratory failure. Plan by systems: Neurologic: Toxic encephalopathy Benzodiazepine overdose Frequent neuro checks On Fentanyl and propofol for goal RASS -2 For sedation for SBT Psych consulted Respiratory: Hypoxic and hypercarbic respiratory failure Vent bundle, Head of bed at 30, Nebs Weaning trial with possible extubation Cardiovascular: Sinus bradycardia Asymptomatic Monitor on telemetry Renal: Acute kidney injury Rhabdomyolysis Likely secondary to presumed overdose LR at 150 cc an hour-DC Serial CKs -- Strict I/Os FEN/GI: Intravascular volume depletion Maintenance fluids as above Daily BMP Heme/ID: No infectious etiology suspected this time Daily CBC Endocrine: Hyperglycemia of critical illness -- SSI, every 6, medium scale Prophylaxis: GI Prophylaxis Pepcid IV DVT Prophylaxis -- SCDs Lovenox Lines: IVs Wiggins Dispo: ICU. Level 2 Vy Rubio MD Nov 05, 2017 12:18
[2017-11-05] MEDS ORDERED: ZIPRASIDONE MESYLATE 20 MG VIAL IM ONE (14:30)
[2017-11-05] MEDS: HALOPERIDOL LACTATE 5 MG/ML AMP IV PRN ×2 (14:45→20:09)
[2017-11-05] MEDS ORDERED: DEXMEDETOMIDINE INJ 200 MCG in SODIUM CHLORIDE 0.9% INJ 50 ML IV PRN (16:15)
[2017-11-05] MEDS ORDERED: chlordiazePOXIDE 25 MG CAP PO PRN (17:30)
[2017-11-05] MEDS ORDERED: ZIPRASIDONE MESYLATE 20 MG VIAL IM PRN (17:30)
[2017-11-05] MEDS ORDERED: DEXMEDETOMIDINE INJ 1,000 MCG in SODIUM CHLOR 0.9% 250 ML INJ 250 ML IV PRN (18:00)
[2017-11-05] MEDS ORDERED: DEXMEDETOMIDINE INJ 1,000 MCG in SODIUM CHLOR 0.9% 250 ML INJ 240 ML IV PRN (18:00)
[2017-11-05] MEDS ORDERED: diphenhydrAMINE HCL 50 MG/ML VIAL IV PUSH ONE (21:00)
[2017-11-06] VITALS (13 sets, daily range): BP systolic 143–157; BP diastolic 67–90; PULSE 48–93; RESP 15–30; TEMP 97.7–99.8; O2SAT 97–100
[2017-11-06] MEDS: HALOPERIDOL LACTATE 5 MG/ML AMP IV PRN ×2 (00:10→06:46)
[2017-11-06] MEDS: THIAMINE INJ 100 MG in SODIUM CHLORIDE 0.9% INJ 100 ML IV SCH (02:00)
[2017-11-06] MEDS ORDERED: HALOPERIDOL LACTATE 5 MG/ML AMP IV ONE (02:15)
[2017-11-06] MEDS ORDERED: diphenhydrAMINE HCL 50 MG/ML VIAL IV ONE (02:15)
[2017-11-06] MEDS ORDERED: MIDAZOLAM HCL 5 MG/ML VIAL (1 ML) IV ONE (02:30)
[2017-11-06] MEDS: RESP: ALBUTEROL 2.5 MG/IPRATROPIUM 0.5 MG NEB (SCH) INH ×2 (03:13→10:09)
[2017-11-06] MEDS: CHLORHEXIDINE GLUCONATE 2 % 1 PACK (2 CLOTHS) TOP SCH (04:00)
[2017-11-06 05:12] LABS: MEAN CORPUSCULAR HEMOGLOBIN 32.5 PG (27.0-34.0); MEAN CORPUSCULAR HGB CONC 34.5 % (32.0-36.0); PLATELET COUNT 133 TH/MM3 (150-450); RED BLOOD COUNT 4.15 MIL/MM3 (4.00-5.30); RED CELL DISTRIBUTION WIDTH 13.7 % (11.6-17.2); REVIEW FLAG FINAL; WHITE BLOOD COUNT 11.6 TH/MM3 (4.0-11.0)
[2017-11-06 05:14] LABS: AUTOMATED NEUTROPHIL # 9.2 TH/MM3 (1.8-7.7); BASOPHIL % 0.3 % (0.0-2.0); EOSINOPHIL # 0.1 TH/MM3 (0-0.4); EOSINOPHIL % 1.2 % (0.0-4.0); HEMATOCRIT 39.4 % (35.0-46.0); HEMO FLAGS DIFF FINAL; LYMPH % 10.5 % (9.0-44.0); LYMPHOCYTE # 1.2 TH/MM3 (1.0-4.8); MEAN CELL VOLUME 94.8 FL (80.0-100.0); MEAN CORPUSCULAR HGB CONC 33.7 % (32.0-36.0); MONO % 6.6 % (0.0-8.0); NEUT % 81.4 % (16.0-70.0); PLATELET COUNT 133 TH/MM3 (150-450); RED BLOOD COUNT 4.16 MIL/MM3 (4.00-5.30); WHITE BLOOD COUNT 11.4 TH/MM3 (4.0-11.0)
[2017-11-06 05:38] LABS: POTASSIUM 3.3 MEQ/L (3.5-5.1)
[2017-11-06] MEDS: INSULIN NovoLIN REGULAR SUPPLEMENTAL SCALE SQ SCH ×4 (06:00→17:48)
[2017-11-06] MEDS: CHLORHEXIDINE 0.12% (ORAL KIT) 15 ML CUP MT SCH ×2 (08:00→20:00)
[2017-11-06] MEDS: DOCUSATE SODIUM 50 MG/SENNA 8.6 MG TAB PO SCH ×2 (09:00→21:19)
[2017-11-06] MEDS: FAMOTIDINE 20 MG/2 ML VIAL IV PUSH SCH ×2 (10:36→21:19)
[2017-11-06] MEDS: MULTIVITAMIN TAB PO SCH (10:36)
[2017-11-06] MEDS: ENOXAPARIN SODIUM 40 MG/0.4 ML SYRINGE SQ SCH (10:37)
[2017-11-06] MEDS: LABETALOL HCL 100 MG/20 ML VIAL IV PUSH PRN ×2 (10:38→11:04)
--- NOTE | 2017-11-06 10:53 | PD.PSY.CON ---
Provisional Diagnosis Admission Date Nov 04, 2017 at 08:28 [place] I. Substance induced psychosis, cannabis and benzodiazepine use disorder, anxiety [place] II. Deferred [place] III. Hypertension History of Present Illness Service Psychiatry Consult Requested By Medical care team Reason for Consult Address overdosing Primary Care Physician Rob Condon, DO [place] The patient is a 42-year-old woman, domiciled with her in [facility], unemployed, with psychiatric history of anxiety, no previous psychiatric hospitalizations, no previous suicidal attempts, she is on Xanax 1 mg 3 times a day, Lexapro 10 mg, prescribed by PCP, she has cannabis use disorder, medical history hypertension, who came to the emergency room with history of being found unresponsive at home by her son. He found both his mother and father unresponsive and called 911. When paramedics arrived the patient was a GCS of 3. She was given Narcan at the scene total of 1.2 mg with no change of her mental status. Decision was made to intubate her once she started doing gagging motions. Patient was in no condition obviously to give any meaningful history. She was brought in intubated. There was no family member is assisting to give any further history. Blood sugar was 98 as per the paramedics and vital signs remained relatively stable. Patient had received Ativan and Etomidate for the intubation. As per the paramedics patient was last seen normal by the son was at 10 PM last night. Her was found unresponsive in the bathroom twitching. They found a pipe in the surrounding. Upon arrival vital signs were stable. The patient was consulted to psychiatry to address a potential suicidal attempt. Patient is calm, cooperative, confused at times. Logical, coherent and relevant. At the beginning she was his stated that she was in the hospital but the day was September 15, 1987, but with redirection she couldn't remember exactly today's date. Patient is states that she doesn't know the reason she is here. She does report she was "using some drugs with her ", but she doesn't remember what she was using. The patient denies using drugs regularly. She says that she takes Xanax 1 mg 3 times per day and Lexapro 10 mg. She uses alcohol occasionally, and cannabis occasionally. Patient says that she was not trying to commit suicide. Patient reports that she has too many reasons to live for, including her kids. At this moment she reports good mood, denies anhedonia, denies hopelessness, denies hopelessness, denies suicidal and homicidal ideation, denies visual and auditory hallucinations. I got collateral information from her son Kin Rosa , , who reports that what happened is that her parents were both using "some kind of drug"and they overdosed accidentally. He does not think that they were trying to commit suicide and they need psychiatric hospitalization. He clarifies that this was an accident. His father was arrested discharged from the hospital and he feels safe with the discharge of his mother. He denies any previous suicide attempts or psychiatric history. Review of Systems Constitutional: DENIES: Diaphoretic episodes, Fatigue, Fever, Weight gain, Weight loss, Chills, Dizziness, Change in appetite, Night Sweats Endocrine: DENIES: Abnorml menstrual pattern, Heat/cold intolerance, Polydipsia , Polyuria, Polyphagia Eyes: DENIES: Blurred vision, Diplopia, Eye inflammation, Eye pain, Vision loss , Photosensitivity, Double Vision Ears, nose, mouth, throat: DENIES: Tinnitus, Hearing loss, Vertigo, Nasal discharge, Oral lesions, Throat pain, Hoarseness, Ear Pain, Running Nose, Epistaxis, Sinus Pain, Toothache, Odynophagia Respiratory: DENIES: Apneas, Cough, Snoring, Wheezing, Hemoptysis, Sputum production, Shortness of breath Cardiovascular: DENIES: Chest pain, Palpitations, Syncope, Dyspnea on Exertion , PND, Lower Extremity Edema, Orthopnea, Claudication Gastrointestinal: DENIES: Abdominal pain, Black stools, Bloody stools, Constipation, Diarrhea, Nausea, Vomiting, Difficulty Swallowing, Anorexia Musculoskeletal: DENIES: Joint pain, Muscle aches, Stiffness, Joint Swelling, Back pain, Neck pain Integumentary: DENIES: Abnormal pigmentation, Pruritus, Rash, Nail changes, Breast masses, Breast skin changes, Nipple discharge Hematologic/lymphatic: DENIES: Bruising, Lymphadenopathy Neurologic: DENIES: Abnormal gait, Headache, Localized weakness, Paresthesias, Seizures, Speech Problems, Tremor, Poor Balance Psychiatric: COMPLAINS OF: Confusion Past Family Social History Coded Allergies: almond (Unverified Allergy, Severe, Anaphylaxis, 11/04/17) Reported Medications Hydrocodone-Acetaminophen (Hydrocodone-Acetaminophen) 10-325 mg Tab, 1 TAB PO Q4H Y for PAIN, TAB 0 Refills 11/04/17 Celecoxib (Celecoxib) 200 Mg Cap, 200 MG PO BID for Pain Management, CAP 0 Refills 11/04/17 Prednisone (Prednisone) 10 Mg Tab, 10 MG PO DAILY, TAB 0 Refills 11/04/17 Gabapentin (Gabapentin) 800 Mg Tab, 800 MG PO QID, #90 TAB 0 Refills 11/04/17 Trazodone (Trazodone) 100 Mg Tablet, 100 MG PO HS for Control Depression, #30 TAB 0 Refills 11/04/17 Levothyroxine (Levothyroxine) 100 Mcg Tab, 100 MCG PO DAILY for Thyroid, #30 TAB 0 Refills 11/04/17 Escitalopram (Escitalopram) 20 Mg Tab, 20 MG PO DAILY, #30 TAB 0 Refills 11/04/17 Alprazolam (Alprazolam) 0.5 Mg Tab, 0.5 MG PO Q8H Y for ANXIETY, TAB 0 Refills 11/04/17 Current Medications Medications (Trade) Dose Ordered Sig/Zev Route Start Time Stop Time Status Last Admin (NS Flush) 2 ml UNSCH PRN IV FLUSH 11/04/17 07:15 (Trandate Inj) 20 mg Q15M PRN IV PUSH 11/04/17 08:30 11/06/17 10:38 (Apresoline Inj) 10 mg Q30M PRN IV PUSH 11/04/17 08:30 11/05/17 00:37 (Peridex 0.12% Liq) 15 ml BID@08,20 MT 11/04/17 20:00 11/06/17 08:00 (Mag-Ox) 800 mg UNSCH PRN PO 11/04/17 08:30 Magnesium Sulfate 4 gm/Sodium Chloride 100 ml @ 50 mls/hr UNSCH PRN IV 11/04/17 08:30 Magnesium Sulfate 2 gm/Sodium Chloride 100 ml @ 50 mls/hr UNSCH PRN IV 11/04/17 08:30 Potassium Chloride 100 ml @ 50 mls/hr Q2H PRN IV 11/04/17 08:30 11/05/17 08:12 Potassium Chloride 100 ml @ 50 mls/hr Q2H PRN IV 11/04/17 08:30 Potassium Chloride 100 ml @ 50 mls/hr Q2H PRN IV 11/04/17 08:30 Potassium Chloride 100 ml @ 25 mls/hr UNSCH PRN IV 11/04/17 08:30 (K-Phos) 2,000 mg Q4H PRN PO 11/04/17 08:30 (K-Phos) 2,000 mg UNSCH PRN PO/TUBE 11/04/17 08:30 Potassium Phosphate 30 mmol/ Sodium Chloride 260 ml @ 42 mls/hr UNSCH PRN IV 11/04/17 08:30 Sodium Phosphate 30 mmol/Sodium Chloride 250 ml @ 42 mls/hr UNSCH PRN IV 11/04/17 08:30 (D50w (Vial) Inj) 25 ml UNSCH PRN IV PUSH 11/04/17 08:30 (NovoLIN R SUPPLEMENTAL SCALE) 1 Q6HR SQ 11/04/17 12:00 (Vitamin B1) 100 mg DAILY PO 11/08/17 09:00 (Theragran) 1 tab DAILY PO 11/05/17 09:00 11/06/17 10:36 (Duoneb Neb) 1 ampule Q6HR NEB INH 11/04/17 10:00 11/06/17 10:09 (Duoneb Neb) 1 ampule Q2HR NEB PRN INH 11/04/17 08:30 (Tylenol) 650 mg Q6H PRN PO 11/04/17 08:30 (Pepcid Inj) 20 mg Q12HR IV PUSH 11/04/17 10:00 11/06/17 10:36 (Zofran Inj) 4 mg Q6H PRN IV PUSH 11/04/17 08:30 (Lovenox Inj) 40 mg Q24H SQ 11/04/17 10:00 11/06/17 10:37 Miscellaneous Information 1 Q361D XX 11/04/17 08:30 (Chlorhexidine 2% Cloth) 3 pack Taper DAILY@04 TOP 11/05/17 04:00 11/01/18 03:59 11/06/17 04:00 (Chlorhexidine 2% Cloth) 3 pack UNSCH PRN TOP 11/04/17 08:30 (Lindsey-Colace) 1 tab BID PO 11/04/17 09:00 11/05/17 08:12 (Milk Of Magnesia Liq) 30 ml Q12H PRN PO 11/04/17 08:30 (Dulcolax Supp) 10 mg DAILY PRN RECTAL 11/04/17 08:30 (Lactulose Liq) 30 ml DAILY PRN PO 11/04/17 08:30 (Haldol Inj) 4 mg Q4H PRN IV 11/05/17 13:45 11/06/17 06:46 (Librium) 25 mg TID PRN PO 11/05/17 17:30 11/05/17 22:21 (Geodon Inj) 20 mg Q6H PRN IM 11/05/17 17:30 11/05/17 20:18 Dexmedetomidine HCl 1000 mcg/ Sodium Chloride 250 ml @ 3.7 mls/hr TITRATE PRN IV 11/05/17 18:00 11/06/17 02:56 Family Psych History No family psychiatric history Social History Patient was born and raised in [facility], she lives in [facility] with her , she is unemployed, supported by her , her highest level of education is high school Patient's Strengths (min. 2) Family support Physical Exam Vital Signs Vital Signs Date Time Temp Pulse Resp B/P (MAP) Pulse Ox O2 Delivery O2 Flow Rate FiO2 11/06/17 10:10 100 21 11/06/17 10:00 66 11/06/17 08:00 98.5 28 151/90 (110) 11/06/17 07:00 Room Air Mechanical Ventilator 11/05/17 12:12 3 I/O 11/06/17 11/06/17 11/07/17 08:00 16:00 00:00 Output Total 500 ml Balance -500 ml Lab Results Test 11/06/17 04:28 11/06/17 04:58 White Blood Count 11.4 TH/MM3 Red Blood Count 4.16 MIL/MM3 Hemoglobin 13.3 GM/DL Hematocrit 39.4 % Mean Corpuscular Volume 94.8 FL Mean Corpuscular Hemoglobin 32.0 PG Mean Corpuscular Hemoglobin Concent 33.7 % Red Cell Distribution Width 14.0 % Platelet Count 133 TH/MM3 Mean Platelet Volume 12.4 FL Neutrophils (%) (Auto) 81.4 % Lymphocytes (%) (Auto) 10.5 % Monocytes (%) (Auto) 6.6 % Eosinophils (%) (Auto) 1.2 % Basophils (%) (Auto) 0.3 % Neutrophils # (Auto) 9.2 TH/MM3 Lymphocytes # (Auto) 1.2 TH/MM3 Monocytes # (Auto) 0.7 TH/MM3 Eosinophils # (Auto) 0.1 TH/MM3 Basophils # (Auto) 0.0 TH/MM3 CBC Comment DIFF FINAL Differential Comment Blood Urea Nitrogen 13 MG/DL Creatinine 0.52 MG/DL Random Glucose 114 MG/DL Calcium Level 8.7 MG/DL Sodium Level 145 MEQ/L Potassium Level 3.3 MEQ/L Chloride Level 112 MEQ/L Carbon Dioxide Level 26.0 MEQ/L Anion Gap 7 MEQ/L Estimat Glomerular Filtration Rate 128 ML/MIN Date/Time Source Procedure Growth Status 11/04/17 07:15 Blood Peripheral Aerobic Blood Culture - Preliminary Gram Positive Cocci Resulted 11/04/17 07:15 Blood Peripheral Anaerobic Blood Culture - Preliminary NO GROWTH IN 1 DAY Resulted Mental Status Examination Appearance: Appropriate Consciousness: Alert Orientation: x4 Motor Activity: Normal gait Speech: Unremarkable Language: Adequate Fund of Knowledge: Adequate Attention and Concentration: Adequate Memory: Unremarkable Mood: Appropriate Affect: Appropriate Thought Process & Associations: Intact Thought Content: Appropriate Hallucination Type: None Delusion Type: None Suicidal Ideation: No Suicidal Plan: No Suicidal Intention: No Homicidal Ideation: No Homicidal Plan: No Homicidal Intention: No Insight: Adequate Judgment: Adequate Assessment & Plan Problem List: (1) Substance-induced psychotic disorder ICD Codes: F19.959 - Other psychoactive substance use, unspecified with psychoactive substance-induced psychotic disorder, unspecified Assessment & Plan: On psychiatric evaluation today the patient denies depressive symptoms, anxiety, jl and psychosis. She denies suicidal and homicidal ideation, she denies visual and auditory hallucinations. Patient was reported agitated, disorganized, confused. This presentation is is to be consistent with substance intoxication and substance due to psychosis. Patient denies that she overdosed intentionally. Her son confirms the patient was using drugs with her and they both overdosed accidentally "apparently with some kind of drug that there are no used to". The patient does not meet criteria for involuntary psychiatric admission at this moment. She was widely educated about the importance of avoiding illegal drugs and taking medication as prescribed. Patient was able to contract for safety. Brief supportive psychotherapy, motivational psychoeducation provided. She does not meet criteria for involuntary psychiatric admission at this moment. Assessment & Plan Estimated LOS: days Vinod,Jamal B. MD Nov 06, 2017 10:53
[2017-11-06] MEDS: hydrALAZINE HCL 20 MG/ML VIAL IV PUSH PRN (11:04)
[2017-11-06] MEDS ORDERED: SODIUM CHLORIDE 0.65% NASAL SPRAY 45 ML BTL NASAL ONE (12:00)
--- NOTE | 2017-11-06 13:44 | HHI.CCPN ---
Subjective Remarks/Hospital Course Is a 42-year-old female who presented to the emergency department after being found unresponsive by her teenage son at home. He found both parents unresponsive and called 911. Patient had a GCS of 3 initially and was unresponsive to Narcan. She was intubated in the field. No additional information is available. Last seen normal time was 10 PM last night. They found a height in the surrounding area. Apparently there were a large number of Xanax missing from the bottle. She is admitted for presumed benzodiazepine overdose. 11/05: Moving all extremities tolerating CPAP. Intermittently following commands per RN. Will proceed with extubation after weaning parameters 11/06: Extubated yesterday tolerated well respiratory bentley, initially was very agitated requiring Precedex. Family at the bedside. Patient does not volunteer information regarding what she ingested Objective Vital Signs Date Time Temp Pulse Resp B/P (MAP) Pulse Ox O2 Delivery O2 Flow Rate FiO2 11/06/17 12:00 88 11/06/17 12:00 97.7 15 148/67 (94) 98 11/06/17 10:10 21 11/06/17 07:00 Room Air Mechanical Ventilator 11/05/17 12:12 3 Intake and Output 11/06/17 11/06/17 11/07/17 08:00 16:00 00:00 Output Total 500 ml Balance -500 ml Result Diagram: 11/06/17 0428 11/06/17 0458 Imaging Last Impressions Head CT 11/04/17710 Signed Impressions: Service Date/Time: Saturday, November 04, 2017 07:41 - CONCLUSION: 1. No acute intracranial abnormality. David Osorio MD Chest X-Ray 11/04/17710 Signed Impressions: Service Date/Time: Saturday, November 04, 2017 07:54 - CONCLUSION: 1. ETT 1.2 cm above the isabela. 2. Retrocardiac opacity consistent with airspace disease in the left lung base. David Osorio MD Objective Remarks GENERAL: Middle-aged appearing female, lying in bed HEENT: Normocephalic. Atraumatic. Pupils equal, round, reactive, conjugate. Mucous membranes are dry NECK: Trachea is midline. There is no JVD. CHEST: Clear to auscultation CARDIOVASCULAR: Sinus by telemetry. no murmurs ABDOMEN: Soft, nontender, nondistended. No guarding. MUSCULOSKELETAL: Pulses 2+. No peripheral edema. NEUROLOGICAL: Pupils 2 mm, equal, round, conjugate. Alert awake follows commands moves all extremities A/P Assessment and Plan Assessment: 42-year-old female found unresponsive at home by her son with a large amount of missing Xanax from pill bottle. Presumed benzodiazepine overdose. Continue frequent neuro checks and remain intubated until mental status improves. Remains critically ill with toxic encephalopathy, overdose, acute hypoxic and hypercarbic respiratory failure. Plan by systems: Neurologic: Toxic encephalopathy-resolved Presumed Benzodiazepine overdose Frequent neuro checks Discontinue all sedating medication. Use Haldol when necessary for agitation Psych consulted- no indication for psych admission Respiratory: Hypoxic and hypercarbic respiratory failure-resolved Extubated yesterday tolerating well Cardiovascular: Sinus bradycardia Asymptomatic Monitor on telemetry Renal: Acute kidney injury Rhabdomyolysis - Strict I/Os - IV to KVO FEN/GI: Intravascular volume depletion Maintenance fluids as above Daily BMP Heme/ID: No infectious etiology suspected this time Daily CBC Endocrine: Hyperglycemia of critical illness -- SSI, every 6, medium scale Prophylaxis: GI Prophylaxis Pepcid IV DVT Prophylaxis -- SCDs Lovenox Lines: IVs Wiggins Dispo: ICU. Level 2 Transfer to Floor, hospitalist to assume care 11/07/17 Vy Rubio MD Nov 06, 2017 13:44
[2017-11-06] MEDS: chlordiazePOXIDE 25 MG CAP PO PRN ×2 (13:46→21:19)
[2017-11-07] VITALS (8 sets, daily range): BP systolic 143–174; BP diastolic 75–94; PULSE 85–111; RESP 18–21; TEMP 97.8–99.2; O2SAT 90–99
[2017-11-07] MEDS: CHLORHEXIDINE GLUCONATE 2 % 1 PACK (2 CLOTHS) TOP SCH (04:00)
[2017-11-07 05:12] LABS: HEMATOCRIT 40.8 % (35.0-46.0); MEAN CORPUSCULAR HEMOGLOBIN 32.7 PG (27.0-34.0); MEAN CORPUSCULAR HGB CONC 34.8 % (32.0-36.0); PLATELET COUNT 149 TH/MM3 (150-450); RED BLOOD COUNT 4.34 MIL/MM3 (4.00-5.30); RED CELL DISTRIBUTION WIDTH 13.9 % (11.6-17.2); REVIEW FLAG FINAL
[2017-11-07] MEDS: INSULIN NovoLIN REGULAR SUPPLEMENTAL SCALE SQ SCH ×4 (06:00→18:00)
[2017-11-07 06:07] LABS: POTASSIUM 2.8 MEQ/L (3.5-5.1)
[2017-11-07] MEDS ORDERED: POTASSIUM CHLORIDE 20 MEQ CONTROLLED RELEASE TAB PO ONE ×2 (06:30→08:00)
[2017-11-07] MEDS: CHLORHEXIDINE 0.12% (ORAL KIT) 15 ML CUP MT SCH (08:00)
[2017-11-07] MEDS: DOCUSATE SODIUM 50 MG/SENNA 8.6 MG TAB PO SCH (09:00)
[2017-11-07] MEDS: MULTIVITAMIN TAB PO SCH (09:29)
[2017-11-07] MEDS: FAMOTIDINE 20 MG/2 ML VIAL IV PUSH SCH (09:32)
[2017-11-07] MEDS: ENOXAPARIN SODIUM 40 MG/0.4 ML SYRINGE SQ SCH (09:32)
[2017-11-07] MEDS: POTASSIUM CHLOR 10 MEQ PREMIX 100 ML IV SCH ×3 (09:32→15:31)
--- NOTE | 2017-11-07 12:46 | HHI.PR ---
Objective Vitals Vital Signs Date Time Temp Pulse Resp B/P (MAP) Pulse Ox O2 Delivery O2 Flow Rate FiO2 11/07/17 12:01 98.5 111 20 159/94 (115) 98 11/07/17 08:02 98.8 99 21 174/85 (114) 98 11/07/17 04:00 99.2 95 20 153/80 (104) 90 11/07/17 04:00 93 11/07/17 00:00 97.8 85 18 143/75 (97) 99 11/07/17 00:00 106 11/06/17 20:15 Room Air 11/06/17 20:00 99.8 84 20 147/81 (103) 98 11/06/17 19:00 76 11/06/17 17:53 98.4 84 20 151/71 (97) 97 11/06/17 17:49 Room Air 11/06/17 16:00 93 11/06/17 16:00 98.9 88 24 147/72 (97) 99 11/06/17 14:00 90 I/O 11/06/17 11/06/17 11/06/17 11/07/17 11/07/17 11/07/17 07:00 15:00 23:00 07:00 15:00 23:00 Intake Total 600 ml Output Total 500 ml Balance -500 ml 600 ml Intake Oral 600 ml Output Urine Total 500 ml # Voids 2 # Bowel Movements 0 2 # Sanitary Pads 4 Pads Result Diagram: 11/07/17 0455 11/07/17 0455 Heath Gallardo MD Nov 07, 2017 12:46
[2017-11-07] MEDS ORDERED: CEFU1TAB20 PO (14:28)
[2017-11-07] MEDS ORDERED: BENZ100 PO (14:28)
[2017-11-07] MEDS ORDERED: BENZONATATE 100 MG CAP PO PRN (14:30)
[2017-11-07] MEDS ORDERED: CEFUROXIME AXETIL 500 MG TAB PO SCH (14:30)
--- NOTE | 2017-11-07 16:32 | HHI.DCPOC ---
Discharge Care Plan Diagnosis: (1) Accidental drug overdose (2) Substance-induced psychotic disorder (3) Respiratory failure (4) Substance abuse (5) Noncompliance with medication regimen Goals to Promote Your Health * To prevent worsening of your condition and complications * To maintain your health at the optimal level Directions to Meet Your Goals Take your medications as prescribed Follow your dietary instruction Follow activity as directed Keep your appointments as scheduled Take your immunizations and boosters as scheduled If your symptoms worsen call your PCP, if no PCP go to Urgent Care Center or Emergency Room Smoking is Dangerous to Your Health. Avoid second hand smoke Call the 24-hour hour crisis hotline for domestic abuse at Heath Gallardo MD Nov 07, 2017 16:32
--- NOTE | 2017-11-07 17:52 | HHI.DS ---
Discharge Summary Admission Date Nov 04, 2017 at 08:28 Admitting Diagnosis unresponsive, respiratory failure, substance abuse Brief History - From Admission Is a 42-year-old female who presented to the emergency department after being found unresponsive by her teenage son at home. He found both parents unresponsive and called 911. Patient had a GCS of 3 initially and was unresponsive to Narcan. She was intubated in the field. No additional information is available. Last seen normal time was 10 PM last night. They found a height in the surrounding area. Apparently there were a large number of Xanax missing from the bottle. She is admitted for presumed benzodiazepine overdose. CBC/BMP: 11/07/17 0455 11/07/17 0455 Significant Findings Laboratory Tests Test 11/05/17 06:18 11/05/17 10:06 11/06/17 04:28 11/06/17 04:58 Random Glucose 135 MG/DL (74-106) 114 MG/DL (74-106) Calcium Level 8.2 MG/DL (8.5-10.1) Potassium Level 3.4 MEQ/L (3.5-5.1) 3.3 MEQ/L (3.5-5.1) Chloride Level 112 MEQ/L (98-107) 112 MEQ/L (98-107) White Blood Count 15.9 TH/MM3 (4.0-11.0) 11.4 TH/MM3 (4.0-11.0) Platelet Count 145 TH/MM3 (150-450) 133 TH/MM3 (150-450) Mean Platelet Volume 12.0 FL (7.0-11.0) 12.4 FL (7.0-11.0) Neutrophils (%) (Auto) 81.4 % (16.0-70.0) Neutrophils # (Auto) 9.2 TH/MM3 (1.8-7.7) Phosphorus Level 2.4 MG/DL (2.5-4.9) Test 11/07/17 04:55 Platelet Count 149 TH/MM3 (150-450) Mean Platelet Volume 11.7 FL (7.0-11.0) Creatinine 0.47 MG/DL (0.50-1.00) Potassium Level 2.8 MEQ/L (3.5-5.1) Pt Condition on Discharge: Good Discharge Disposition: Discharge Home Discharge Instructions DIET: Follow Instructions for: As Tolerated, No Restrictions Activities you can perform: Regular-No Restrictions Heath Gallardo MD Nov 07, 2017 17:52
[2017-11-07 19:05] LABS: BICARBONATE 23.6 MEQ/L (21.0-32.0); POTASSIUM 3.9 MEQ/L (3.5-5.1)
[2017-11-07] MEDS ORDERED: FAMOTIDINE 20 MG TAB PO SCH (21:00)
--- NOTE | 2017-11-07 21:30 | EKG ---
Date Performed: 11/07/2017 Time Performed: 16:58:36 PTAGE: 42 years EKG: Sinus rhythm NORMAL ECG PREVIOUS TRACING : 11/04/2017 07.09 Compared to previous tracing, heart rate has increased. DOCTOR: En Reilly Interpretating Date/Time 11/07/2017 21:29:05
[2017-11-08] MEDS ORDERED: THIAMINE HCL 100 MG TAB PO SCH (09:00)
== END 2017-11-07 20:45 | disposition home or self-care (01) | DRG 917 ==
LOC: NEPC 07:03 → NEDA 08:28 → N03B 11:13 → N04B 11-06 17:31
PROVIDERS: ADMIT Family Medicine; ATTEND Family Medicine
PROC: 5A1945Z Respiratory Ventilation, 24-96 Consecutive Hours (ICD-10-PCS; principal; 2017-11-04)
DX: T42.4X1A Poisoning by benzodiazepines, accidental (unintentional), initial encounter (principal); J96.01 Acute respiratory failure with hypoxia; G92 Toxic encephalopathy; J96.02 Acute respiratory failure with hypercapnia; N17.9 Acute kidney failure, unspecified; M62.82 Rhabdomyolysis; R00.1 Bradycardia, unspecified; E86.9 Volume depletion, unspecified; R73.9 Hyperglycemia, unspecified; R40.2431 Glasgow coma scale score 3-8, in the field [EMT or ambulance]; M10.9 Gout, unspecified; G40.909 Epilepsy, unspecified, not intractable, without status epilepticus; M19.90 Unspecified osteoarthritis, unspecified site; F32.9 Major depressive disorder, single episode, unspecified; F41.9 Anxiety disorder, unspecified; F17.210 Nicotine dependence, cigarettes, uncomplicated; F19.10 Other psychoactive substance abuse, uncomplicated
CPT/HCPCS: 43753; 51702; 70450; 71010; 80048; 80053; 80307; 81001; 82140; 82550; 82552; 82805; 82948; 83605; 83735; 84100; 84436; 84443; 84484; 85025; 85027; 85610; 87040; 87186; 87205; 87641; 93005; 94002; 94003; 94150; 94640; 94664; 96360; J0360; J1200; J1630; J1650; J2250; J3010; J3411; J3480; J3486; J7030; J7050; J7120

== ENCOUNTER 2017-11-08 19:31 | Emergency (ER) | payer MEDICAID ==
[~2017-11-08 19:31] MED LIST changes: -ADVAI250I PO; +ALPR0.5T3 PO; +BENZ100 PO; +CEFU1TAB20 PO; +CELE1CAP8 PO; -CLIN150 PO; -DIPH2%T PO; +ESCI20TA PO; -HYDR-3533 PO; +HYDR-3583 PO; -IBUP600 PO; -IBUP800 PO; -LEVE500 PO; +LEVO100T5 PO; -LEXA20TA PO; -PRED-1 PO; -SYMB160A INH; -SYNT75TA PO; +TRAZ100T10 PO; -TRAZ50TA4 PO; -XANA0.5T PO
[2017-11-08 19:44] VITALS: BP 169/101; PULSE 89; RESP 16
--- NOTE | 2017-11-08 20:12 | PD ---
HPI Chief Complaint: ENT Complaint Time Seen by Provider: 19:53 Travel History International Travel<30 days: No Contact w/Intl Traveler<30days: No Traveled to known affect area: No History of Present Illness HPI PATIENT STATES SHE WAS EATING PORK AND NOW FEELS LIKE IT STUCK, PATIENT IS SPEAKING WITHOUT DIFFIULTY ALSO SWALLOWS WITHOUT DIFFICULTY AND IS ABLE TO TOLERATE HER OWN SECRETIONS WITHOUT DIFFICULTY. PFSH Past Medical History Arthritis: Yes Autoimmune Disease: Yes (LUPUS) Anxiety: Yes Depression: Yes Cancer: Yes (thyroid, ovarian per pt son) Cardiovascular Problems: No Chemotherapy: No Diminished Hearing: No Endocrine: Yes (thyroid cancer) Gastrointestinal Disorders: Yes Gout: Yes Genitourinary: No Headaches: Yes Immune Disorder: Yes Implanted Vascular Access Dvce: No Musculoskeletal: Yes Neurologic: Yes (seizure disorder/dystonia) Psychiatric: Yes Reproductive: Yes (ovarian cancer ) Respiratory: No Immunizations Current: Yes Migraines: Yes Radiation Therapy: No Seizures: Yes Thyroid Disease: Yes (hyopthyroid) PNEUMOCCOCAL Vaccine (Year): 2010 ?: Not LMP: 11/06/2017 : 3 Para: 2 Miscarriage: 1 Ovarian Cysts: Yes Tubal Ligation: Yes Past Surgical History Gynecologic Surgery: Yes (LT OOPHORECTOMY) Other Surgery: Yes Social History Alcohol Use: No Tobacco Use: Yes (1 PPD) Substance Use: No Allergies-Medications (Allergen,Severity, Reaction): Coded Allergies: almond (Verified Allergy, Severe, Anaphylaxis, 11/08/17) lorazepam (Verified Allergy, Unknown, 11/08/17) Reported Meds & Prescriptions Reported Meds & Active Scripts Active Tessalon Perles (Benzonatate) 100 Mg Cap 100 Mg PO TID PRN Cefuroxime (Cefuroxime Axetil) 500 Mg Tab 500 Mg PO Q12HR Reported Hydrocodone-Acetaminophen 10-325 mg Tab 1 Tab PO Q4H PRN Celecoxib 200 Mg Cap 200 Mg PO BID Gabapentin 800 Mg Tab 800 Mg PO QID Trazodone (Trazodone HCl) 100 Mg Tablet 100 Mg PO HS Levothyroxine (Levothyroxine Sodium) 100 Mcg Tab 100 Mcg PO DAILY Escitalopram (Escitalopram Oxalate) 20 Mg Tab 20 Mg PO DAILY Alprazolam 0.5 Mg Tab 0.5 Mg PO Q8H PRN Review of Systems Except as stated in HPI: all other systems reviewed are Neg General / Constitutional: No: Fever Eyes: No: Visual changes HENT: Positive: Other (FB SENSATION) Cardiovascular: No: Chest Pain or Discomfort Respiratory: No: Shortness of Breath Gastrointestinal: No: Abdominal Pain Genitourinary: No: Dysuria Musculoskeletal: No: Pain Skin: No Rash Neurologic: No: Weakness Psychiatric: No: Depression Endocrine: No: Polydipsia Hematologic/Lymphatic: No: Easy Bruising Physical Exam Narrative GENERAL: SKIN: Warm and dry. HEAD: Atraumatic. Normocephalic. EYES: Pupils equal and round. No scleral icterus. No injection or drainage. ENT: No nasal bleeding or discharge. Mucous membranes pink and moist. NECK: Trachea midline. No JVD. CARDIOVASCULAR: Regular rate and rhythm. RESPIRATORY: No accessory muscle use. Clear to auscultation. Breath sounds equal bilaterally. GASTROINTESTINAL: Abdomen soft, non-tender, nondistended. Hepatic and splenic margins not palpable. MUSCULOSKELETAL: Extremities without clubbing, cyanosis, or edema. No obvious deformities. NEUROLOGICAL: Awake and alert. No obvious cranial nerve deficits. Motor grossly within normal limits. Five out of 5 muscle strength in the arms and legs. Normal speech. RESTING TREMOR (PROVIDED FULL HISTORY HERSELF, EASILY DISTRACTED BUT A/O X4) PSYCHIATRIC: Appropriate mood and affect; insight and judgment normal. Data Data Last Documented VS Vital Signs Date Time Temp Pulse Resp B/P (MAP) Pulse Ox O2 Delivery O2 Flow Rate FiO2 11/08/17 21:15 88 16 170/98 (122) 99 Room Air Orders Orders Soft Tissue Neck (11/08/17 ) Electrocardiogram (11/08/17 20:02) B-Type Natriuretic Peptide (11/08/17 20:02) Ckmb (Isoenzyme) Profile (11/08/17 20:02) Complete Blood Count With Diff (11/08/17 20:02) Comprehensive Metabolic Panel (11/08/17 20:02) Prothrombin Time / Inr (Pt) (11/08/17 20:02) Act Partial Throm Time (Ptt) (11/08/17 20:02) Troponin I (11/08/17 20:02) Chest, Single Ap (11/08/17 20:02) Ecg Monitoring (11/08/17 20:02) Bilateral Bp Monitoring (11/08/17 20:02) Iv Access Insert/Monitor (11/08/17 20:02) Oximetry (11/08/17 20:02) Oxygen Administration (11/08/17 20:02) Sodium Chloride 0.9% Flush (Ns Flush) (11/08/17 20:15) CKMB (11/08/17 20:30) CKMB% (11/08/17 20:30) Labs Laboratory Tests Test 11/08/17 20:30 White Blood Count 10.1 TH/MM3 Red Blood Count 4.51 MIL/MM3 Hemoglobin 14.2 GM/DL Hematocrit 42.4 % Mean Corpuscular Volume 94.0 FL Mean Corpuscular Hemoglobin 31.6 PG Mean Corpuscular Hemoglobin Concent 33.6 % Red Cell Distribution Width 13.8 % Platelet Count 211 TH/MM3 Mean Platelet Volume 12.2 FL Neutrophils (%) (Auto) 70.6 % Lymphocytes (%) (Auto) 18.1 % Monocytes (%) (Auto) 9.2 % Eosinophils (%) (Auto) 1.6 % Basophils (%) (Auto) 0.5 % Neutrophils # (Auto) 7.2 TH/MM3 Lymphocytes # (Auto) 1.8 TH/MM3 Monocytes # (Auto) 0.9 TH/MM3 Eosinophils # (Auto) 0.2 TH/MM3 Basophils # (Auto) 0.0 TH/MM3 CBC Comment DIFF FINAL Differential Comment Prothrombin Time 10.9 SEC Prothromb Time International Ratio 1.1 RATIO Activated Partial Thromboplast Time 26.6 SEC Blood Urea Nitrogen 15 MG/DL Creatinine 0.61 MG/DL Random Glucose 90 MG/DL Total Protein 7.8 GM/DL Albumin 3.7 GM/DL Calcium Level 8.8 MG/DL Alkaline Phosphatase 114 U/L Aspartate Amino Transf (AST/SGOT) 22 U/L Alanine Aminotransferase (ALT/SGPT) 28 U/L Total Bilirubin 0.5 MG/DL Sodium Level 139 MEQ/L Potassium Level 3.1 MEQ/L Chloride Level 106 MEQ/L Carbon Dioxide Level 22.2 MEQ/L Anion Gap 11 MEQ/L Estimat Glomerular Filtration Rate 107 ML/MIN Total Creatine Kinase 199 U/L Creatine Kinase MB 2.3 NG/ML Creatine Kinase MB % 1.2 % Troponin I 0.02 NG/ML B-Type Natriuretic Peptide 10 PG/ML MDM Medical Decision Making Medical Screen Exam Complete: Yes Emergency Medical Condition: Yes Medical Record Reviewed: Yes Interpretation(s) EKG: NSR 67, MOTION ARTIFACT, NO STEMI PATTERN, NL INTERVALS... Differential Diagnosis ESOPHAGEAL ABRASION V ESOPHAGEAL FB V CHEST WALL PAIN V STEMI V PNA Narrative Course EKG NO STEMI PATTERN, TROP/CKMB NEGATIVE, CHEST XRAY NO PNA PATTERN, ALSO NO FB NOTED ON SOFT TISSUE XRAY...ADDITIONALLY PATIENT WAS HANDLING HER OWN SECRETIONS WELL, WATCHING TV AND CONVERSING WITH HER , AT ONE POINT WE OFFERED PO WATER ABOUT 4 OUNCES AND PATIENT WAS ABLE TO SWALLOW AND AFTER 30 MINUTES OBSERVATION DID NOT VOMIT. WILL D/C HOME AND RECC SHE FOLLOW UP WITH GI SHOULD SHE HAVE ANY DIFFICULTY SWALLOWING OR TOLERATING HER SALIVA Diagnosis Primary Impression: MEDICALLY CLEARED Additional Impression: Sensation of foreign body in esophagus Referrals: Chandler Castillo MD FOR FURTHER EVALUATION OF FOREIGN BODY SENSATION Patient Instructions: General Instructions Additional Instructions: CALL [employer] FOR APPOINTMENT AND FURTHER EVALUATION OF YOUR SENSATION. Disposition: 01 DISCHARGE HOME Condition: Stable Light[place],Philip Napier MD Nov 08, 2017 20:12
[2017-11-08] MEDS ORDERED: SODIUM CHLORIDE 0.9% FLUSH 10 ML FLUSH IVF PRN (20:15)
--- NOTE | 2017-11-08 20:39 | RADRPT ---
EXAM DATE/TIME: 11/08/2017 20:18 [facility] COMPARISON: No previous studies available for comparison. INDICATIONS : Upper chest pain. MEDICAL HISTORY : None. SURGICAL HISTORY : None. ENCOUNTER: Initial ACUITY: 1 day PAIN SCORE: 6/10 LOCATION: Bilateral chest FINDINGS: A single view of the chest demonstrates the lungs to be symmetrically aerated without evidence of mas s, infiltrate or effusion. The cardiomediastinal contours are unremarkable. Osseous structures are intact. CONCLUSION: 1. No acute disease. Mild scoliosis. Reid Tamayo MD on November 08, 2017 at 20:36 Board Certified Radiologist. This report was verified electronically.
--- NOTE | 2017-11-08 20:40 | RADRPT ---
EXAM DATE/TIME: 11/08/2017 20:20 [facility] COMPARISON: No previous studies available for comparison. INDICATIONS : Possible foreign body. MEDICAL HISTORY : None. SURGICAL HISTORY : None. ENCOUNTER: Initial ACUITY: 1 day PAIN SCORE: 6/10 LOCATION: Left neck FINDINGS: Two view examination of the soft tissues of the neck demonstrates the hypopharyngeal airway to have a grossly normal configuration. The trachea is midline. No radiopaque foreign bodies are seen. CONCLUSION: 1. No acute findings. No radiopaque foreign body identified Reid Tamayo MD on November 08, 2017 at 20:37 Board Certified Radiologist. This report was verified electronically.
[2017-11-08 20:59] LABS: AUTOMATED NEUTROPHIL # 7.2 TH/MM3 (1.8-7.7); BASOPHIL % 0.5 % (0.0-2.0); EOSINOPHIL # 0.2 TH/MM3 (0-0.4); EOSINOPHIL % 1.6 % (0.0-4.0); HEMATOCRIT 42.4 % (35.0-46.0); HEMOGLOBIN 14.2 GM/DL (11.6-15.3); LYMPH % 18.1 % (9.0-44.0); LYMPHOCYTE # 1.8 TH/MM3 (1.0-4.8); MEAN CORPUSCULAR HEMOGLOBIN 31.6 PG (27.0-34.0); MEAN CORPUSCULAR HGB CONC 33.6 % (32.0-36.0); MEAN PLATELET VOLUME 12.2 FL (7.0-11.0); MONO % 9.2 % (0.0-8.0); MONOCYTE # 0.9 TH/MM3 (0-0.9); NEUT % 70.6 % (16.0-70.0); PLATELET COUNT 211 TH/MM3 (150-450); RED BLOOD COUNT 4.51 MIL/MM3 (4.00-5.30); RED CELL DISTRIBUTION WIDTH 13.8 % (11.6-17.2); WHITE BLOOD COUNT 10.1 TH/MM3 (4.0-11.0)
[2017-11-08 21:12] VITALS: PULSE 90; RESP 16; O2SAT 99
[2017-11-08 21:13] LABS: INTERNATIONAL NORMALIZED RATIO 1.1 RATIO; PROTHROMBIN TIME - PATIENT 10.9 SEC (9.8-11.6)
[2017-11-08 21:15] VITALS: BP 170/98; PULSE 88; RESP 16; O2SAT 99
[2017-11-08 21:24] LABS: ALBUMIN 3.7 GM/DL (3.4-5.0); ALT (GPT) 28 U/L (10-53); AST (GOT) 22 U/L (15-37); BICARBONATE 22.2 MEQ/L (21.0-32.0); BLOOD UREA NITROGEN 15 MG/DL (7-18); CALCIUM 8.8 MG/DL (8.5-10.1); CHLORIDE 106 MEQ/L (98-107); CREATININE 0.61 MG/DL (0.50-1.00); GLOMERULAR FILTRATION RATE 107 ML/MIN (>89); GLUCOSE,RANDOM 90 MG/DL (74-106); SODIUM (NA) 139 MEQ/L (136-145)
[2017-11-08 21:29] LABS: ALKALINE PHOSPHATASE 114 U/L (45-117); TOTAL BILIRUBIN ADULT 0.5 MG/DL (0.2-1.0); TOTAL PROTEIN 7.8 GM/DL (6.4-8.2); TROPONIN I 0.02 NG/ML (0.02-0.05)
--- NOTE | 2017-11-09 10:57 | EKG ---
Date Performed: 11/08/2017 Time Performed: 21:04:13 PTAGE: 42 years EKG: Sinus rhythm BORDERLINE LEFT AXIS DEVIATION NONSPECIFIC T-WAVE ABNORMALITY BORDERLINE ECG PREVIOUS TRACING : 11/07/2017 16.58 No significant change from previous tracing noted. DOCTOR: En Reilly Interpretating Date/Time 11/09/2017 10:55:41
== END 2017-11-08 22:59 | disposition home or self-care (01) ==
LOC: NEPC 19:31
DX: R19.8 Other specified symptoms and signs involving the digestive system and abdomen (principal); M32.9 Systemic lupus erythematosus, unspecified; F17.200 Nicotine dependence, unspecified, uncomplicated; Z85.850 Personal history of malignant neoplasm of thyroid
CPT/HCPCS: 70360; 71010; 80053; 82550; 82552; 83880; 84484; 85025; 85610; 85730; 93005